=== PATIENT | male | born 1945 | race American Indian/Alaskan Native ===

== ENCOUNTER 2016-10-23 15:24 | Emergency (ER) | payer MEDICARE ==
[2016-10-23 16:35] VITALS: RESP 18
--- NOTE | 2016-10-23 16:35 | ED PDOC ---
Syncope/Near Syncope/Dizziness Time Seen by Provider: 10/23/16 15:45 Chief Complaint (Nursing): Dizziness/Lightheaded Chief Complaint (Provider): Dizziness/Lightheaded History Per: Patient History/Exam Limitations: no limitations Onset/Duration Of Symptoms: Days (x2 months) Current Symptoms Are (Timing): Still Present Additional Complaint(s): Nadir Ledesma is a 71 year old male with previous medical history of asthma and kidney stones, who presents to the emergency department with a complaint of dizziness associated with shortness of breath, blurry vision and fatigue ongoing for 2 months. Denied any room spins or headaches. Patient stated he last saw PCP in June 2016 for routine bloodwork which showed findings of elevated cholesterol and triglyceride levels. He was prescribed medication to control cholesterol but reported that he stopped taking it a week ago. Patient also reported that dizziness is worsen when standing up quickly and causes him stress and agitation. PMD: Jeremiah Barrett MD Past Medical History Reviewed: Historical Data, Nursing Documentation, Vital Signs Vital Signs: Last Vital Signs Temp 97.9 F 10/23/16 15:30 Pulse 56 L 10/23/16 15:30 Resp 14 10/23/16 15:30 BP 120/73 10/23/16 15:30 Pulse Ox 98 10/23/16 15:30 - Medical History PMH: Asthma, HTN, Hyperlipidemia Denies: Chronic Kidney Disease - Family History Family History: States: Unknown Family Hx - Social History Current smoker - smoking cessation education provided: No Alcohol: None Drugs: Denies - Immunization History Hx Tetanus Toxoid Vaccination: No Hx Influenza Vaccination: No - Home Medications Home Medications: Ambulatory Orders Medication Instructions Recorded Ibuprofen [Motrin] 1 tab PO TID PRN #30 tab 06/04/13 - Allergies Allergies/Adverse Reactions: Allergies Allergy/AdvReac Type Severity Reaction Status Date / Time meperidine Allergy RASH Verified 10/23/16 15:34 Review of Systems ROS Statement: Except As Marked, All Systems Reviewed And Found Negative Constitutional: Negative for: Other (room spins) Eyes: Positive for: Vision Change (blurry) Respiratory: Positive for: Shortness of Breath Neurological: Positive for: Dizziness. Negative for: Headache Psych: Positive for: Other (fatigue) Physical Exam - Reviewed Nursing Documentation Reviewed: Yes Vital Signs Reviewed: Yes - Physical Exam Appears: Positive for: Well, Non-toxic, No Acute Distress Head Exam: Positive for: ATRAUMATIC, NORMAL INSPECTION, NORMOCEPHALIC Eye Exam: Positive for: Normal appearance, EOMI, PERRL. Negative for: Nystagmus , Other (dizziness with positional changes) ENT: Positive for: Pharynx Is (dry). Negative for: Normal ENT Inspection Cardiovascular/Chest: Positive for: Regular Rate, Rhythm. Negative for: Murmur Respiratory: Positive for: Normal Breath Sounds. Negative for: Crackles, Rales , Rhonchi, Wheezing Pulses-Post. Tibialis (L): 2+ Pulses-Radial (L): 2+ Pulses-Radial (R): 2+ Gastrointestinal/Abdominal: Positive for: Normal Exam, Bowel Sounds, Soft. Negative for: Tenderness Extremity: Positive for: Normal ROM, Other (right venous stasis). Negative for : Tenderness Neurologic/Psych: Positive for: Alert, over short and damage clerk II-XII, Oriented - Laboratory Results Result Diagrams: 10/23/16 16:30 10/23/16 16:30 - ECG O2 Sat by Pulse Oximetry: 98 (RA) Pulse Ox Interpretation: Normal Medical Decision Making Medical Decision Making: Initial Impression: Dizziness Initial Plan: * CT head without contrast * EKG * Labs * Troponin I * Urine dipstick * Erythrocyte sed rate * CXR * Re-evaluation Scribe Attestation: Documented by Jeanine Parisi, acting as a scribe for Marilyn Fernandez MD. Provider Scribe Attestation: All medical record entries made by the Scribe were at my direction and personally dictated by me. I have reviewed the chart and agree that the record accurately reflects my personal performance of the history, physical exam, medical decision making, and the department course for this patient. I have also personally directed, reviewed, and agree with the discharge instructions and disposition. 6.40p patient is feeling better. CT head and labs are normal. Chest x-ray is also normal. EKG appears normal. Will d/c and advised patient to followup with his PMD. Disposition - Clinical Impression Clinical Impression: Dizziness, Dehydration, mild - Patient ED Disposition Is Patient to be Admitted: Yes Doctor Will See Patient In The: Office Counseled Patient/Family Regarding: Diagnosis, Need For Followup - Disposition Referrals: Jeremiah Barrett [Staff Provider] - [facility] [Outside] Disposition: Routine/Home Disposition Time: 18:15 Condition: IMPROVED Instructions: Dizziness (ED), Dehydration (ED) Forms: [employer] (Czech) Print Language: EAST TIMORESE - POA Present On Arrival: None
[2016-10-23 17:00] LABS: BASO % 0.6 % (0.0-2.0); EOS # 0.1 K/uL (0.0-0.7); EOS % 1.6 % (0.0-4.0); HEMATOCRIT 35.9 % (35.0-51.0); LYMPH # 1.9 K/uL (1.0-4.3); LYMPH % 35.4 % (20.0-40.0); MEAN CELL VOLUME 86.9 fl (80.0-94.0); MEAN CORPUSCULAR HEMOGLOBIN 28.3 pg (27.0-31.0); MEAN CORPUSCULAR HGB CONC 32.5 g/dL (33.0-37.0); MEAN PLATELET VOLUME 7.6 fl (7.2-11.7); MONO # 0.4 K/uL (0.0-0.8); MONO % 6.7 % (0.0-10.0); NEUT % 55.7 % (50.0-75.0); NRBC % 0.1 % (0.0-0.0); RED CELL DISTRIBUTION WIDTH 14.5 % (11.5-14.5); WHITE BLOOD COUNT 5.4 K/uL (4.8-10.8)
--- NOTE | 2016-10-23 17:03 | RAD ---
HISTORY: dizziness COMPARISON: No prior. TECHNIQUE: Chest PA and lateral FINDINGS: LUNGS: No active pulmonary disease. PLEURA: No significant pleural effusion identified. No pneumothorax apparent. CARDIOVASCULAR: Normal. OSSEOUS STRUCTURES: No significant abnormalities. VISUALIZED UPPER ABDOMEN: Normal. OTHER FINDINGS: None. IMPRESSION: No active disease.
[2016-10-23 17:26] LABS: ALB/GLOB RATIO 1.4 (1.0-2.1); ALKALINE PHOSPHATASE 44 U/L (38-126); ALT/SGPT 32 U/L (21-72); AST/SGOT 20 U/L (17-59); BILIRUBIN,TOTAL 0.3 mg/dl (0.2-1.3); BLOOD UREA NITROGEN 16 mg/dl (9-20); CARBON DIOXIDE 25 mmol/L (22-30); CHLORIDE 106 mmol/L (98-107); GFR AFRICAN-AMERICAN > 60; GLUCOSE,RANDOM 97 mg/dL (75-110); POTASSIUM 4.1 MMOL/L (3.6-5.0); SODIUM 139 mmol/l (132-148); TOTAL PROTEIN 6.4 G/DL (6.3-8.2)
--- NOTE | 2016-10-23 18:32 | CT ---
PROCEDURE: CT HEAD WITHOUT CONTRAST. HISTORY: dizziness x 2 months COMPARISON: None available. TECHNIQUE: Axial computed tomography images were obtained through the head/brain without intravenous contrast. Radiation dose: Total exam DLP = 874.59 mGy-cm. This CT exam was performed using one or more of the following dose reduction techniques: Automated exposure control, adjustment of the mA and/or kV according to patient size, and/or use of iterative reconstruction technique. FINDINGS: HEMORRHAGE: No intracranial hemorrhage. BRAIN: No mass effect or edema. Mild atrophy is noted. VENTRICLES: Unremarkable. No hydrocephalus. CALVARIUM: Unremarkable. PARANASAL SINUSES: Unremarkable as visualized. No significant inflammatory changes. MASTOID AIR CELLS: Unremarkable as visualized. No inflammatory changes. OTHER FINDINGS: None. IMPRESSION: No evidence of acute intracranial hemorrhage intracranial collection mass effect or midline shift. Mild atrophy.
[2016-10-23 18:51] VITALS: BP 125/76; PULSE 56; TEMP 98
[2016-10-23 18:52] VITALS: O2SAT 98
--- NOTE | 2016-10-24 10:27 | CARD ---
APPROVED REPORT EKG Measurement Heart [id number] FL [id number] [id number] <Conclusion> Sinus bradycardia Otherwise normal ECG
== END 2016-10-23 19:14 | disposition home or self-care (01) ==
LOC: H.ER 15:24
DX: R42 Dizziness and giddiness (principal); E86.0 Dehydration; E78.5 Hyperlipidemia, unspecified; I10 Essential (primary) hypertension; J45.909 Unspecified asthma, uncomplicated

== ENCOUNTER 2017-04-13 19:16 | Emergency (ER) | payer MEDICARE ==
[2017-04-13 19:56] VITALS: BP 141/82; PULSE 76; RESP 18; TEMP 98; O2SAT 96
--- NOTE | 2017-04-13 20:44 | ED PDOC ---
HPI: Skin/Bite Injury Time Seen by Provider: 04/13/17 19:59 Chief Complaint (Nursing): Abnormal Skin Integrity Chief Complaint (Provider): Rash History Per: Patient History/Exam Limitations: no limitations Onset/Duration Of Symptoms: Days (x 1 week) Current Symptoms Are (Timing): Still Present Quality Of Symptoms: Painful, Itching Additional Complaint(s): Nadir Ledesma is a 71-year-old male who presents to the emergency department complaining of a rash, onset 1 week ago. Patient reports the affected area is itchy and painful. He denies any fever or chills. PMD: Dr. Barrett Past Medical History Reviewed: Historical Data, Nursing Documentation, Vital Signs Vital Signs: Last Vital Signs Temp 98 F 04/13/17 19:53 Pulse 76 04/13/17 19:53 Resp 18 04/13/17 19:53 BP 141/82 04/13/17 19:53 Pulse Ox 96 04/13/17 20:46 - Medical History PMH: Asthma, HTN, Hyperlipidemia - Surgical History Other surgeries: Prostate surgery - Family History Family History: States: No Known Family Hx - Living Arrangements Living Arrangements: With Family - Social History Current smoker - smoking cessation education provided: No Alcohol: None Drugs: Denies - Home Medications Home Medications: Ambulatory Orders Medication Instructions Recorded Ibuprofen [Motrin] 1 tab PO TID PRN #30 tab 06/04/13 traMADol [Ultram] 50 mg PO TID PRN #15 tab 04/13/17 valACYclovir [Valtrex] 1 gm PO TID #21 tab 04/13/17 - Allergies Allergies/Adverse Reactions: Allergies Allergy/AdvReac Type Severity Reaction Status Date / Time meperidine Allergy RASH Verified 04/13/17 19:53 Review of Systems ROS Statement: Except As Marked, All Systems Reviewed And Found Negative Constitutional: Negative for: Fever, Chills Skin: Positive for: Rash (to right side of chest, with itchiness and pain) Physical Exam - Reviewed Nursing Documentation Reviewed: Yes Vital Signs Reviewed: Yes - Physical Exam Appears: Positive for: Non-toxic, No Acute Distress Head Exam: Positive for: ATRAUMATIC, NORMAL INSPECTION, NORMOCEPHALIC Skin: Positive for: Rash (vesicular rash noted to right anterolateral chest wall - appearance consistent with shingles) Eye Exam: Positive for: Normal appearance Cardiovascular/Chest: Positive for: Regular Rate, Rhythm Respiratory: Positive for: Normal Breath Sounds. Negative for: Respiratory Distress Neurologic/Psych: Positive for: Alert, Oriented - ECG O2 Sat by Pulse Oximetry: 96 (RA) Pulse Ox Interpretation: Normal Medical Decision Making Medical Decision Making: Initial Impression: 71 year old male with shingles Time: 20:30 Initial Plan: --Will give Tylenol and Tramadol in ED Upon provider evaluation patient is medically stable, and requires no further treatment in the ED at this time. Patient will be discharged home with Rx for Tramadol and Valtrex. Counseling was provided and all questions were answered regarding diagnosis and need for follow up with PMD. There is agreement to discharge plan. Return if symptoms persist or worsen. Scribe Attestation: Documented by Vesta Dsouza, acting as a scribe for Shira Ordaz PA-C Provider Scribe Attestation: All medical record entries made by the Scribe were at my direction and personally dictated by me. I have reviewed the chart and agree that the record accurately reflects my personal performance of the history, physical exam, medical decision making, and the department course for this patient. I have also personally directed, reviewed, and agree with the discharge instructions and disposition. Disposition - Clinical Impression Clinical Impression: Shingles - Patient ED Disposition Is Patient to be Admitted: No Counseled Patient/Family Regarding: Diagnosis, Need For Followup, Rx Given - Disposition Referrals: Jeremiah Barrett [Family Provider] - Disposition: Routine/Home Disposition Time: 21:11 Condition: STABLE Additional Instructions: Take prescription medications as directed. Keep area clean and dry. Do not apply any topical creams. Follow up with primary doctor in 2-3 days. Prescriptions: traMADol [Ultram] 50 mg PO TID PRN #15 tab PRN Reason: Pain, Moderate (4-7) valACYclovir [Valtrex] 1 gm PO TID #21 tab Instructions: Shingles (ED) Forms: [employer] (Icelandic) Print Language: NEPALI
== END 2017-04-13 21:25 | disposition home or self-care (01) ==
LOC: H.ER 19:16
DX: B02.9 Zoster without complications (principal); I10 Essential (primary) hypertension; J45.909 Unspecified asthma, uncomplicated; E78.5 Hyperlipidemia, unspecified

== ENCOUNTER 2017-11-17 00:59 | Emergency (ER) | payer MEDICARE ==
[2017-11-17 01:23] VITALS: RESP 18
[2017-11-17 01:56] LABS: BASO % 0.5 % (0.0-2.0); EOS # 0.1 K/uL (0.0-0.7); EOS % 1.2 % (0.0-4.0); HEMOGLOBIN 12.5 g/dL (12.0-18.0); LYMPH # 1.5 K/uL (1.0-4.3); MEAN CELL VOLUME 87.1 fl (80.0-94.0); MEAN CORPUSCULAR HEMOGLOBIN 29.1 pg (27.0-31.0); MEAN CORPUSCULAR HGB CONC 33.4 g/dL (33.0-37.0); MEAN PLATELET VOLUME 7.3 fl (7.2-11.7); MONO # 0.5 K/uL (0.0-0.8); MONO % 7.9 % (0.0-10.0); NEUT % 65.4 % (50.0-75.0); RBC 4.3 Mil/uL (4.40-5.90); RED CELL DISTRIBUTION WIDTH 14.3 % (11.5-14.5); WHITE BLOOD COUNT 6.2 K/uL (4.8-10.8)
--- NOTE | 2017-11-17 01:56 | ED PDOC ---
HPI: Abdomen Time Seen by Provider: 11/17/17 01:16 Chief Complaint (Nursing): Abdominal Pain Chief Complaint (Provider): Abdominal Pain History Per: Patient History/Exam Limitations: no limitations Onset/Duration Of Symptoms: Sudden Onset Current Symptoms Are (Timing): Still Present Additional Complaint(s): 72 year old male with pmHx of kidney stones and hernia presents to ED with a complaint of right-sided flank pain radiating to mid-abdomen ongoing for 2 hours prior to arrival. Patient rates pain as 7/10 presently and reports it feels similar to previous kidney stones. He denies any nausea, vomiting, or diarrhea. PMD: Dr. Jeremiah Barrett Past Medical History Vital Signs: Last Vital Signs Temp 98.2 F 11/17/17 03:25 Pulse 68 11/17/17 03:25 Resp 18 11/17/17 03:25 BP 131/78 11/17/17 03:25 Pulse Ox 98 11/17/17 03:30 - Medical History PMH: Asthma, Hiatal Hernia, HTN, Hyperlipidemia Denies: Chronic Kidney Disease - Surgical History Surgical History: No Surg Hx - Family History Family History: States: Unknown Family Hx - Social History Current smoker - smoking cessation education provided: No Alcohol: None Drugs: Denies - Immunization History Hx Tetanus Toxoid Vaccination: No Hx Influenza Vaccination: No - Home Medications Home Medications: Ambulatory Orders Medication Instructions Recorded Ibuprofen [Motrin] 1 tab PO TID PRN #30 tab 06/04/13 RX: traMADol [Ultram] 50 mg PO TID PRN #15 tab 04/13/17 valACYclovir [Valtrex] 1 gm PO TID #21 tab 04/13/17 Tamsulosin [Flomax] 0.4 mg PO DAILY #10 cap 11/17/17 traMADol [Ultram] 50 mg PO Q6 PRN #10 tab 11/17/17 - Allergies Allergies/Adverse Reactions: Allergies Allergy/AdvReac Type Severity Reaction Status Date / Time meperidine Allergy RASH Verified 04/13/17 19:53 Review of Systems ROS Statement: Except As Marked, All Systems Reviewed And Found Negative Gastrointestinal: Positive for: Abdominal Pain (right-sided). Negative for: Nausea, Vomiting, Diarrhea Musculoskeletal: Positive for: Back Pain (right flank) Physical Exam - Reviewed Nursing Documentation Reviewed: Yes Vital Signs Reviewed: Yes - Physical Exam Appears: Positive for: Non-toxic, No Acute Distress Head Exam: Positive for: ATRAUMATIC, NORMAL INSPECTION, NORMOCEPHALIC Skin: Positive for: Normal Color Eye Exam: Positive for: Normal appearance, EOMI, PERRL ENT: Positive for: Normal ENT Inspection Neck: Positive for: Normal Cardiovascular/Chest: Positive for: Regular Rate, Rhythm Respiratory: Positive for: Normal Breath Sounds. Negative for: Respiratory Distress Gastrointestinal/Abdominal: Positive for: Normal Exam, Soft. Negative for: Tenderness Back: Positive for: Normal Inspection. Negative for: L CVA Tenderness, R CVA Tenderness Extremity: Positive for: Normal ROM (upper/lower) Neurologic/Psych: Positive for: Alert, Oriented. Negative for: Motor/Sensory Deficits - Laboratory Results Result Diagrams: 11/17/17 01:44 11/17/17 01:44 - ECG O2 Sat by Pulse Oximetry: 98 (RA) Pulse Ox Interpretation: Normal Medical Decision Making Medical Decision Making: Initial Impression: 72 year old male male with renal colic. Initial Plan: * CT ABD/pelvis without contrast * Labs * Toradol 15mg IVP Time: 024 --CT ABD/pelvis FINDINGS: Lower thorax: No acute findings. ABDOMEN: Liver: Normal. No mass. Gallbladder and bile ducts: Normal. No calcified stones. No ductal dilation. Pancreas: Normal. No ductal dilation. Spleen: Normal. No splenomegaly. Adrenals: Normal. No mass. Kidneys and ureters: Moderate right hydroureteronephrosis and right perinephric/ periureteric stranding. Faint right nephrolithiasis/nephrocalcinosis. Left renal cysts Stomach and bowel: Normal. No obstruction. No mucosal thickening. Appendix: No evidence of appendicitis. PELVIS: Bladder: 3-4 mm right UVJ cannot feel this noted Reproductive: Unremarkable as visualized. ABDOMEN and PELVIS: Intraperitoneal space: Normal. No free air. No significant fluid collection. Bones/joints: No acute fracture. No dislocation. Mild degenerative changes in the spine Soft tissues: Small fat-containing inguinal hernias are noted. Vasculature: Normal. No abdominal aortic aneurysm. Lymph nodes: Normal. No enlarged lymph nodes. IMPRESSION: Moderate right obstructive uropathy secondary to a 3-4 mm right UVJ calculus Faint right nephrocalcinosis/nephrolithiasis Time: 0323 --Labs reviewed: no significant clinical abnormality. Upon provider reevaluation , patient is medically stable, reports markable improvement in symptoms and requires no further treatment in the ED at this time. Patient will be discharged home and advised to follow up with his urologist, Dr. Whitfield. Counseling was provided and all questions were answered regarding diagnosis. There is agreement to discharge plan. Return if symptoms persist or worsen. Clinical Impression: Ureteral calculus Scribe Attestation: Documented by Jeanine Parisi, acting as a scribe for Blayne Roche MD. Provider Scribe Attestation: All medical record entries made by the Scribe were at my direction and personally dictated by me. I have reviewed the chart and agree that the record accurately reflects my personal performance of the history, physical exam, medical decision making, and the department course for this patient. I have also personally directed, reviewed, and agree with the discharge instructions and disposition. Disposition - Clinical Impression Clinical Impression: Ureteral calculus - Patient ED Disposition Is Patient to be Admitted: No Counseled Patient/Family Regarding: Studies Performed, Diagnosis, Need For Followup, Rx Given - Disposition Referrals: Jaziel Whitfield MD [Medical Doctor] - Jeremiah Barrett [Family Provider] - Disposition: Routine/Home Disposition Time: 03:23 Condition: STABLE Prescriptions: Tamsulosin [Flomax] 0.4 mg PO DAILY #10 cap traMADol [Ultram] 50 mg PO Q6 PRN #10 tab PRN Reason: abdominal/flank pain Instructions: Kidney Stones in Adults Forms: [employer] (Estonian) Print Language: ARGENTINE
[2017-11-17 02:03] LABS: ALB/GLOB RATIO 1.4 (1.0-2.1); ALBUMIN 4.2 g/dL (3.5-5.0); ALT/SGPT 23 U/L (21-72); AST/SGOT 24 U/L (17-59); BLOOD UREA NITROGEN 21 mg/dl (9-20); CALCIUM 9.3 mg/dL (8.4-10.2); GFR NON-AFRICAN AMERICAN 55; LIPASE 46 U/L (23-300)
[2017-11-17 02:22] LABS: URINE BILIRUBIN NEGATIVE (NEGATIVE); URINE BLOOD NEGATIVE (NEGATIVE); URINE CLARITY CLEAR (Clear); URINE COLOR YELLOW (YELLOW); URINE GLUCOSE (UA) NEG (Normal); URINE LEUKOCYTE ESTERASE NEG Leu/uL (Negative); URINE PROTEIN NEGATIVE (NEGATIVE); URINE UROBILINOGEN 0.2-1.0 mg/dL (0.2-1.0)
[2017-11-17 03:29] VITALS: BP 131/78; PULSE 68; TEMP 98.2
[2017-11-17 03:30] VITALS: O2SAT 98
--- NOTE | 2017-11-17 10:37 | CT ---
Date of service: 11/17/2017 PROCEDURE: CT Abdomen and Pelvis without intravenous contrast HISTORY: renal colic COMPARISON: None. TECHNIQUE: Technique. Contrast dose: Without IV or oral contrast Radiation dose: Total exam DLP = 529 mGy-cm. This CT exam was performed using one or more of the following dose reduction techniques: Automated exposure control, adjustment of the mA and/or kV according to patient size, and/or use of iterative reconstruction technique. FINDINGS: LOWER THORAX: Unremarkable. LIVER: Unremarkable. No gross lesion or ductal dilatation. GALLBLADDER AND BILE DUCTS: Unremarkable. PANCREAS: Unremarkable. No gross lesion or ductal dilatation. SPLEEN: Unremarkable. ADRENALS: Unremarkable. No mass. KIDNEYS AND URETERS: Bilateral 1 mm and or sub mm nonobstructing renal calculi are present. The right kidney is swollen with right perinephric fat inflammatory stranding There are at least 2 left renal hypodense masses the largest is exophytic off the upper pole measuring up to 4.8 cm. These may be renal cysts. Renal ultrasound for characterisation recommended Right hydronephrosis and right hydroureter present. Right hydroureter is down to an approximately 3 mm obstructing calculus at the right ureteral vesicle junction/right bladder orifice. The calculus is chest at this orifice and or having just recently passed into the bladder parts of this calculus on these images projects just above the bladder wall some images project the calculus within the bladder wall. Continued follow-up recommended VASCULATURE: A few pelvic calcified phleboliths are noted. No aortic aneurysm. Developmental variant retro aortic renal vein noted BOWEL: Unremarkable. No obstruction. No gross mural thickening. APPENDIX: Unremarkable. Normal appendix. PERITONEUM: Unremarkable. No free fluid. No free air. LYMPH NODES: Unremarkable. No enlarged lymph nodes. BLADDER: Unremarkable. REPRODUCTIVE: The prostate is not enlarged. Tiny few prostatic calcifications are present. BONES: No acute fracture. OTHER FINDINGS: Bilateral groin fat only containing hernias. No bowel containing hernias noted IMPRESSION: 3 mm right ureteral junctional calculus at and/or just having passed into the bladder at the right ureterovesical junction noted. Right hydroureter and right hydronephrosis. Right renal swelling with right perinephric fat stranding compatible with acute obstruction Bilateral 1 mm and or sub mm nephrolithiasis Left renal masses probably renal cysts. Consider ultrasound for characterization Other findings as above. Concordant results (preliminary interpretation) provided by [employer]
== END 2017-11-17 03:20 | disposition home or self-care (01) ==
LOC: H.ER 00:59
DX: N20.2 Calculus of kidney with calculus of ureter (principal); Z87.442 Personal history of urinary calculi; I10 Essential (primary) hypertension; J45.909 Unspecified asthma, uncomplicated
CPT/HCPCS: 74176; 80053; 81003; 83690; 85025; 96374; 99283; J1885